=== PATIENT | female | born 1985 | race Two or more races ===

== ENCOUNTER 2022-10-09 18:32 | Emergency (ER) | payer BC, OTHER ==
[~2022-10-09] VITALS: Ht 157.5 cm; Wt 70.8 kg
--- NOTE | 2022-10-09 21:20 | NUR ---
Isidra was called in the waiting room to have vital signs retaken but was not present
--- NOTE | 2022-10-09 22:00 | NUR ---
Patient was called to have vital sign re assess but was not present in the waiting room or outside of ER. PATIENT WAS NOT TRIAGED OR SEEN BY [facility].
== END 2022-10-09 22:00 | disposition left against medical advice (07) ==
LOC: ER 18:32
DX: R10.33 Periumbilical pain (principal)
CPT/HCPCS: A4663